=== PATIENT | female | born 1950 | race Caucasian/White ===

== ENCOUNTER → 2021-11-29 14:59 | Outpatient (CLI) | payer MEDICARE, OTHER, SELFPAY ==
--- NOTE | 2021-11-29 | DI.RAD.S_ITS ---
PROCEDURE: XR HIP W PEL IF DONE SHIMON MIN 4V INDICATIONS: BILATERAL HIP PAIN TECHNIQUE: AP pelvis with lateral view(s) of the bilateral hip(s). COMPARISON: None. FINDINGS: Bones: No fractures or dislocations. Pelvic ring appears intact. No suspicious bony lesions. Bilateral hip arthroplasties are present. Hardware is intact without evidence of periprosthetic lucency to suggest loosening or fracture. Degenerative changes are present within the lower lumbar spine. Soft tissues: The visualized bowel gas pattern is normal. No suspicious soft tissue calcifications. IMPRESSION: Bilateral hip arthroplasties as above. Dictated by: Tish Quiñonez M.D. on 11/29/2021 at 16:17 Approved by: Tish Quiñonez M.D. on 11/29/2021 at 16:17
== END ==
PROVIDERS: PCP Family Medicine; Referring Provider Family Medicine; Visit Provider Family Medicine
DX: M25.551 Pain in right hip (principal); M25.552 Pain in left hip; M47.816 Spondylosis without myelopathy or radiculopathy, lumbar region; Z96.643 Presence of artificial hip joint, bilateral
CPT/HCPCS: 73521